=== PATIENT | female | born 1995 | race Caucasian/White ===

== ENCOUNTER 2017-05-16 01:58 | Emergency (ER) | payer OTHER ==
[~2017-05-16] VITALS: Ht 154.9 cm; Wt 117.9 kg
[2017-05-16 02:02] VITALS: Ht 154.9 cm; Wt 117.9 kg
[2017-05-16 03:10] VITALS: BP 150/97
== END 2017-05-16 03:18 | disposition short-term general hospital (02) ==
LOC: ED 01:58
DX: O80 Encounter for full-term uncomplicated delivery (principal); Z3A.37 37 weeks gestation of pregnancy

== ENCOUNTER 2018-07-09 13:19 | Emergency (ER) | payer OTHER ==
[~2018-07-09] VITALS: Ht 165.1 cm; Wt 127.0 kg
[2018-07-09 13:33] VITALS: Ht 165.1 cm; Wt 127.0 kg
[2018-07-09 16:19] VITALS: BP 118/55
== END 2018-07-09 16:19 | disposition home or self-care (01) ==
LOC: ED 13:19
DX: J02.0 Streptococcal pharyngitis (principal)
CPT/HCPCS: 87804; J0561; J1885